=== PATIENT | male | born 1970 | race Caucasian/White ===

== ENCOUNTER 2018-04-08 16:46 | Emergency (ER) | payer OTHER ==
[~2018-04-08] VITALS: Ht 185.4 cm; Wt 91.0 kg
[2018-04-08] MEDS ORDERED: LIDOCAINE HCL/PF 1% 10 MG/ML 5ML VIAL IJ ONE ×2 (17:45→20:00)
[2018-04-08] MEDS ORDERED: BACITRACIN ZINC OINT UDPKT TOP ONE (17:45)
[2018-04-08] MEDS ORDERED: TETANUS, DIPHTHERIA, PERTUSSIS VAC/PF 0.5ML (>7YR OLD) IM ONE (18:45)
[2018-04-08] MEDS ORDERED: CEPHALEXIN 500MG CAPSULE PO ONE (18:45)
[2018-04-08 19:37] VITALS: BP 127/83
== END 2018-04-08 21:33 | disposition home or self-care (01) ==
LOC: ER 19:22
DX: S62.631B Displaced fracture of distal phalanx of left index finger, initial encounter for open fracture (principal); W45.8XXA Other foreign body or object entering through skin, initial encounter; Y93.89 Activity, other specified; Y92.89 Other specified places as the place of occurrence of the external cause; Y99.8 Other external cause status
CPT/HCPCS: 29130; 73130; 90471; 90715; 99284; J3490; Z7610